=== PATIENT | male | born 1955 | race Caucasian/White ===

== ENCOUNTER 2018-02-13 17:47 | Emergency (ER) | payer OTHER ==
--- NOTE | 2018-02-13 18:45 | EDPHY ---
H & P Time Seen by Provider: 02/13/18 17:58 HPI/ROS: This patient complains of left paraspinous lumbar pain 1 week after diagnosis of low back strain. 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 He was evaluated and a [facility] then received methocarbamol and ibuprofen for treatment. He reports that with medications as pain decreases to 2/10 from 6 or 7/10 without medications but does not feel least improve much. He felt that his evaluation was haste the at the outlying emergency department and is interested in MRI or some other imaging of his ongoing back pain concerned that there may be some other more significant diagnosis causing his symptoms. He is accompanied by his . They came in by private vehicle. ROS: Constitutional: No fevers or chills. Pulmonary: No shortness of breath. Cardiovascular: No chest pain. No abdominal pain. No leg discoloration or pallor. GI: No abdominal pain. No vomiting : No hematuria. Neuro: No numbness tingling or focal weakness. No bowel or bladder incontinence. Musculoskeletal: No radiation of his pain in his buttock or leg. 7 point ROS is otherwise negative Past Medical/Surgical History: Otherwise healthy Smoking Status: Heavy smoker Physical Exam: General Appearance: Alert, no distress. Eyes: Pupils equal and round no pallor or injection. ENT, Mouth: Mucous membranes moist. Respiratory: There are no retractions, lungs are clear to auscultation. Cardiovascular: Regular rate and rhythm. No pulsatile abdominal masses or tenderness. He maintains 2+ symmetric femoral pulses bilaterally. Gastrointestinal: Abdomen is soft and nontender, no masses, bowel sounds normal. Back: No midline tenderness. Patient has left paraspinous lumbar tenderness. No sciatic notch tenderness. Straight leg raise is negative bilaterally. Neurological: GCS 15. Patient maintains normal light touch sensory exam bilateral lower extremities. He maintains 2+ patellar and Achilles DTRs were symmetric bilaterally. He maintains 5/5 strength in great toe dorsiflexion and plantar flexion bilaterally. Skin: Warm and dry, no rashes. Musculoskeletal: Neck is supple nontender. Extremities are symmetrical, full range of motion. Psychiatric: Mood and affect are normal DIFFERENTIAL DIAGNOSIS: After history and physical exam differential diagnosis was considered for low back strain, disc herniation, degenerative disc disease, Constitutional: Initial Vital Signs Temperature (C) 36.5 C 02/13/18 18:03 Heart Rate 71 02/13/18 18:03 Respiratory Rate 16 02/13/18 18:03 Blood Pressure 170/95 H 02/13/18 18:03 O2 Sat (%) 94 02/13/18 18:03 O2 Delivery Mode Room Air Allergies/Adverse Reactions: No Known Allergies Allergy (Unverified 02/13/18 18:02) Home Medications: Medication Instructions Recorded Methocarbamol [Robaxin 750 mg (*)] 750 - 1,500 mg PO QID PRN #30 tab 02/13/18 MDM/Departure - MDM Imaging Results: Imaging Impressions Lumbar Spine X-Ray 02/13/18 18:16 Impression: 1. Mild degenerative changes, and some secondary features suggestive of underlying muscle spasm. 2. Moderate constipation. Two view lumbar spine x-rays: Normal other than slight curvature cyst with muscle spasm by my interpretation. Imaging: I viewed and interpreted images myself ED Course/Re-evaluation: Explained to the patient there is no indication for MRI. The counseled regarding his plane radiograph. Discussion: Patient presents with low back strain with ongoing symptoms. Counseled regarding stretches that may assist in his symptoms and provided an additional methocarbamol script as he is nearly out of his current methocarbamol script. No evidence of cauda equina syndrome no clinical evidence of AAA or other red flag findings in this patient. He will follow up with work comp doc. He understands need to return emergency department should he develop worsening symptoms despite the treatment plan. - Depart Disposition: Home, Routine, Self-Care Clinical Impression: Low back strain Qualifiers: Encounter type: initial encounter Qualified Code(s): S39.012A - Strain of muscle, fascia and tendon of lower back, initial encounter Condition: Good Instructions: Low Back Strain (ED) Additional Instructions: DX: Low back strain Plan: Ibuprofen 400-600 mg per 6 hours regularly for the next week then as needed. Methocarbamol muscle relaxants as needed. Tylenol in addition as needed for pain. Starts daily stretches prior to taking muscle relaxants and Vicodin in the morning. 3-5 minutes each of: "Butterfly stretch," "Sphinx stretch", "pigeon stretch", and hamstring stretch. Avoid lifting more than 5-10 pounds until symptoms improve. Follow-up with your work comp physician for recheck sometime within the next week. Go to the emergency department for worsening of your symptoms despite the treatment plan. Prescriptions: Methocarbamol [Robaxin 750 mg (*)] 750 - 1,500 mg PO QID PRN #30 tab PRN Reason: Muscle Spasms Referrals: NONE *PRIMARY CARE P,. [Primary Care Provider] - As per Instructions Ash Wolfe MD [[facility] [place] Primary Care Provider] - As per Instructions
[2018-02-13 18:48] VITALS: BP 147/88
== END 2018-02-13 18:46 | disposition home or self-care (01) ==
LOC: CED 17:47
DX: S39.012A Strain of muscle, fascia and tendon of lower back, initial encounter (principal); F17.200 Nicotine dependence, unspecified, uncomplicated; X50.9XXA Other and unspecified overexertion or strenuous movements or postures, initial encounter; Y92.69 Other specified industrial and construction area as the place of occurrence of the external cause; Y99.0 Civilian activity done for income or pay; Y93.89 Activity, other specified
CPT/HCPCS: 72100-PO